=== PATIENT | male | born 2000 ===

== ENCOUNTER 2021-03-26 08:50 | Emergency (ER) | payer OTHER ==
[~2021-03-26] VITALS: Ht 162.6 cm; Wt 63.5 kg
== END 2021-03-26 10:09 | disposition home or self-care (01) ==
LOC: ER 08:50 → EDBD 08:56 → ER 10:09
DX: L05.91 Pilonidal cyst without abscess (principal); Z87.2 Personal history of diseases of the skin and subcutaneous tissue